=== PATIENT | male | born 1950 | race Caucasian/White ===

== ENCOUNTER 2017-01-25 10:39 | Day surgery (SDC) | payer MEDICARE, OTHER ==
[2017-01-25] VITALS (16 sets, daily range): BP systolic 119–243; BP diastolic 72–115; PULSE 63–84; RESP 10–18; TEMP 96.2–97.9; O2SAT 92–98; Ht 175.3 cm; Wt 98.2 kg
[~2017-01-25] VITALS: Ht 175.3 cm; Wt 98.2 kg
[~2017-01-25 10:39] MED LIST: AMLO5TAB2 PO; ASPI81TA2 PO; ATOR20TA59 PO; HYDR-4180 PO; LIDOCAINE 1% (10mg/ml) 2ml SDV INJ ONE; LISI1TAB11 PO; LR 1,000 ML IV SCH; MULT1TAB69 PO
[2017-01-25 11:14] LABS: BASOPHILS # (AUTO) 0.2 T/MM3 (0-0.2); BASOPHILS % (AUTO) 1.4 % (0-2); EOSINOPHILS # (AUTO) 0.7 T/MM3 (0-0.5); EOSINOPHILS % (AUTO) 5.7 % (0-4); HCT - HEMATOCRIT 47.7 % (41-53); HGB - HEMOGLOBIN 16.2 GM/DL (13.5-17.5); IMMATURE GRANULOCYTE # (AUTO) 0.03 T/MM3 (0.00-0.03); IMMATURE GRANULOCYTE % (AUTO) 0.3 % (0.0-0.5); LYMPHOCYTES # (AUTO) 3.5 T/MM3 (1-4.8); LYMPHOCYTES % (AUTO) 30.7 % (23-45); MEAN CORPUSCULAR HGB 32.3 UUG (26-34); MEAN CORPUSCULAR VOLUME 95.2 UM3 (80-100); MONOCYTES # (AUTO) 0.6 T/MM3 (0-0.8); MONOCYTES % (AUTO) 5.5 % (0-9.0); NEUTROPHILS #(AUTO)-ABSOLUTE 6.5 T/MM3 (1.8-7.7); NEUTROPHILS % (AUTO) 56.4 % (33-66); RED BLOOD COUNT 5.01 M/MM3 (4.50-5.90); WBC - WHITE BLOOD COUNT 11.5 T/MM3 (4.5-11.0)
[2017-01-25] MEDS ORDERED: METF10002 PO (11:16)
[2017-01-25] MEDS ORDERED: CITA20TA9 PO (11:17)
[2017-01-25] MEDS ORDERED: LOSA100T44 PO (11:18)
[2017-01-25] MEDS ORDERED: CARV6.252 PO (11:20)
[2017-01-25 11:35] LABS: ANION GAP 15 MEQ/L (5-15); BUN/CREATININE RATIO 17 RATIO (6-26); CALCIUM 9.7 MG/DL (8.4-10.2); CHLORIDE 103 MEQ/L (98-107); CO2 - CARBON DIOXIDE 26 MEQ/L (22-30); CREATININE 0.9 MG/DL (0.8-1.5); GLOMERULAR FILTRATION RATE 85; GLUCOSE 115 MG/DL (75-110); POTASSIUM 4.1 MEQ/L (3.6-5); SODIUM 144 MEQ/L (134-144)
--- NOTE | 2017-01-25 11:44 | ANESPREOP ---
Anesthesia Record Date and Time DATE: 01/25/17 TIME: 11:42 Pre-Op Diagnosis BCC on chest Proposed Surgical Procedure EXCISION OF INVASIVE BASAL CELL SKIN CARCINOMA AT ANTERIOR CHEST WITH STSG NPO since: Midnight Allergies: Coded Allergies: No Known Allergies (Unverified , 01/24/17) Ht/Wt/BMI Height: 5 ' 9.00 " Weight: 98.200 kg BMI: 32.0 kg/m2 Vital Signs Date Time Temp Pulse Resp B/P Pulse Ox O2 Delivery O2 Flow Rate FiO2 01/25/17 11:28 16 01/25/17 10:52 97.6 79 243/115 95 Room Air Medications Inpatient Medications Current Medications Medications (Trade) Dose Ordered Sig/Babs Start Time Stop Time Status Last Admin Dose Admin Lactated Ringer's (Lactated Ringers) 1,000 ml @ 50 mls/hr Q20H 01/25/17 07:00 Amlodipine Besylate (Amlodipine Besylate) 5 Mg Tablet, 5 MG PO HS, (Reported) Last Taken: on 01/24/172099 Aspirin (Aspirin) 81 Mg Tab.chew, 81 MG PO DAILY, (Reported) Last Taken: on 01/24/17 0800 Atorvastatin Calcium (Atorvastatin Calcium) 20 Mg Tablet, 1 TAB PO DAILY, (Reported) Last Taken: on 01/24/17 0800 Carvedilol (Carvedilol) 6.25 Mg Tablet, 2 TAB PO BIDWM, (Reported) BEST WITH FOOD. Last Taken: on 01/24/17 2100 Citalopram Hydrobromide (Citalopram HBr) 20 Mg Tablet, 1 TAB PO DAILY, (Reported) Last Taken: on 01/24/17 0800 Losartan Potassium (Losartan Potassium) 100 Mg Tablet, 100 MG PO DAILY, (Reported) Last Taken: on 01/24/17 0800 Metformin HCl (Metformin HCl) 1,000 Mg Tablet, 1 TAB PO BIDWM, (Reported) Take one tablet, by mouth, twice daily with meals Last Taken: on 01/24/17 1900 Multivitamin (Multivitamins) 1 Each Tablet, 1 TAB PO DAILY, (Reported) Last Taken: on 01/24/17 0800 Discontinued Medications Hydralazine HCl (Hydralazine HCl) 25 Mg Tablet, 1 TAB PO Q6H PRN for INCREASED BLOOD PRESSURE BEST TAKEN WITH MEALS. Take if Higher number is above 170 Discontinued Reason: Medication Stopped Lisinopril/Hydrochlorothiazide (Lisinopril-Hctz 20-12.5 mg Tab) 1 Each Tablet, 1 TAB PO DAILY, (Reported) Last Taken: on Unknown Date & Time Currently on Beta Mickey: Yes Beta Mickey Last Taken: 01/24/17 will dose in the OR Medical/Surgical History Anesthesia PMH: Reports: *Diabetes (TAKES METFORMIN), *Hypertension (TAKES MEDS ), CVA/Stroke/TIA (PT REPORTS), Denies: Anesthesia Reactions (NO AIRWAY ISSUES) , Cancer (SKIN CANCER), Glaucoma, Malignant Hyperthermia, Sleep Apnea Smoking Status: Current every day smoker Has pt. smoked today?: Yes # of Packs per Day: 1 # of Years: 50 Use Chewing Tobacco?: No Second Hand Exposure: No Substance Use Type: does not use Alcohol Intake: daily Last Drink: hours (ago) (48) Past Surgical History Orthopedic Surgeries: Yes - ARM ,LEG, COLLAR BONE Abdominal Surgeries: Genitourinary Surgeries: Cardiac Surgeries: Endocrine Surgeries: Reproductive Surgeries: Neurological Surgeries: Ear Surgeries: Nose Surgeries: Throat Surgeries: Yes - TONSILS Other Surgeries: Yes - ARM ,LEG, COLLAR BONE Anesthesia Adverse Reactions: FOUND none Family Hx of Anesthesia Advers: none Hx of Motion Sickness: No Pertinent Findings Laboratory Tests 01/25/17 11:06 EKG Rhythm: Sinus Rhythm Physical Exam Respiratory: Lungs clear Cardiovascular: FOUND Regular rate, rhythm Airway Assessment Mallampati Score: II TMD: 3 Fingerbreadths Neck Extension: Fair Teeth: Poor Dentation Overall Assessment: May Be Diff Mask Vent. (Full roberts) ASA: 3 Plan Anesthesia Plan: TIVA, LMA Discussion Discussed risks/options/alternatives of anesthesia and questions answered. Patient consents. Nursing pain assessment noted. Attestation Statement Prior to the delivery of any anesthetic medication, I examined the patient, developed the plan, obtained the patient's consent and discussed the risk and benefits of the procedure with the patient/guardian. JARED BENAVIDEZ SHAKER REPAIRER Jan 25, 2017 11:44
[2017-01-25] MEDS ORDERED: ALFENTANIL 500mcg/ml - 2ml INJECTION ONE (11:55)
[2017-01-25] MEDS ORDERED: PROPOFOL 500mg 50 ML IV ONE ×3 (12:04→13:55)
[2017-01-25] MEDS ORDERED: BUPIVACAINE 0.25% (2.5mg/ml) INJ 30ml SDV ONE (12:50)
[2017-01-25] MEDS ORDERED: EPHEDRINE SULFATE 50mg/ml INJECTION ONE (13:24)
[2017-01-25] MEDS ORDERED: KETAMINE 500mg/10ml INJECTION ONE (13:51)
[2017-01-25] MEDS ORDERED: FENTANYL 100mcg/2ml INJECTION ONE (14:26)
[2017-01-25] MEDS ORDERED: METOPROLOL 5mg/5ml INJECTION IV ONE (14:32)
--- NOTE | 2017-01-25 14:55 | GSPOSTPROC ---
Immediate Operative Note DATE: 01/25/17 TIME: 14:53 Postop Diagnosis: Invasive basal cell skin carcinoma at anterior chest Surgical Procedure: Other (Excision of basal cell skin carcinoma) Surgeon: Ismael ASA: 3 CHARLA WELCH MD Jan 25, 2017 14:55
[2017-01-25] MEDS ORDERED: ONDANSETRON 4mg/2ml INJECTION IV PRN (15:00)
[2017-01-25] MEDS ORDERED: PROMETHAZINE 25 MG INJECTION IV PRN (15:00)
[2017-01-25] MEDS ORDERED: MORPHINE 10mg/ml vl INJECTION IV PRN (15:00)
[2017-01-25] MEDS ORDERED: IBUPROFEN 200 MG TABLET PO PRN (15:00)
[2017-01-25] MEDS ORDERED: ACETAMINOPHEN 500 MG TABLET PO PRN (15:00)
[2017-01-25] MEDS ORDERED: OXYCODONE I.R. 5 MG TABLET PO PRN (15:00)
--- NOTE | 2017-01-25 15:15 | ANESPO ---
Post-Op Note Date 01/25/17 Time: 15:15 Status Pt Participated in Evaluation: Pt participated in person Vital Signs Date Time Temp Pulse Resp B/P Pulse Ox O2 Delivery O2 Flow Rate FiO2 01/25/17 11:28 16 01/25/17 10:52 97.6 79 243/115 95 Room Air Respiratory Function: Airway patent Cardiovascular Function: Regular pulse Telemetry Pattern: SR Mental Status: Alert/oriented Pain Level Intensity: 0 Hydration: IV infusing Complications during Recovery None apparent Follow-Up Instructions Instructions Per Surgeon JARED BENAVIDEZ CRNA Jan 25, 2017 15:15
--- NOTE | 2017-01-26 16:13 | OPNOTEF ---
DATE OF OPERATION 01/25/17 PREOPERATIVE DIAGNOSES 1. Large multinodular basal cell skin carcinoma at anterior chest. 2. Suspicious skin lesion overlying medial end of right clavicle. POSTOPERATIVE DIAGNOSES 1. Large multinodular basal cell skin carcinoma at anterior chest. 2. Suspicious skin lesion overlying medial end of right clavicle. OPERATION Excision of large multinodular basal cell skin carcinoma at anterior chest and excision of suspicious skin lesion overlying medial end of right clavicle. SURGEON Dr. Young Guevara ANESTHESIA TIVA ASA Class III. FINDINGS This patient did have a 7.8 cm x 3.5 cm area of multiple nodular skin lesions at the midline anterior chest just inferior to the suprasternal notch. One of these skin lesions was biopsied by Dr. Zaragoza on 01/03/17 and the pathology report on this biopsy did show invasive basal cell skin carcinoma. All the other multiple nodular skin lesion at this area looked like the one which was biopsied and these were all thought to probably be part of one large multinodular basal cell skin carcinoma lesion. The patient did also have a 2 cm x 2.5 cm red suspicious appearing skin lesion overlying the medial end of the right clavicle. This lesion was thought to have a suspicious appearance. The 7.8 cm x 3.5 cm multinodular basal cell skin carcinoma was excised along with a margin of normal-appearing skin. This specimen was submitted for frozen section examination by the pathologist. The pathologist did return a verbal frozen section examination report on this specimen indicating that all resection margins appeared to be free of tumor involvement. The 2 cm x 2.5 cm suspicious skin lesion overlying the medial end of the right clavicle was excised and submitted as a specimen for frozen section examination by the pathologist. The pathologist did return a verbal frozen section examination report on the specimen indicating that this is some type of benign skin lesion. No carcinoma was found at the skin lesion overlying the medial end of the right clavicle.. DESCRIPTION OF OPERATION The patient was placed in supine position on the operating table. The patient was premedicated with intravenous sedation medication administered by the nurse observation assistant. The patient continued to receive this intravenous sedation medication throughout the remainder of the operation. The anterior chest was shaved. The anterior chest of this patient and also the skin overlying the medial end of the right clavicle were all prepped and draped in routine sterile fashion. A split- thickness skin graft donor site at the anterior surface of the right thigh was also prepped and draped in routine sterile fashion at the same time. Bupivacaine 0.25% without epinephrine was infiltrated into skin and subcutaneous tissue at the 7.8 cm x 3.5 cm basal cell skin carcinoma at the anterior chest located just inferior to the suprasternal notch at the midline at the anterior chest. Bupivacaine was also infiltrated into skin and subcutaneous tissue at the suspicious skin lesion at the medial end of the right clavicle. The 7.8 cm x 3.5 cm skin lesion was excised along with a 3-mm margin of normal-appearing skin on all sides of the skin lesion. This specimen of skin and subcutaneous tissue was excised with scalpel and submitted for study by the pathologist. The skin lesion was pinned to a cloth drape with some needles. Anterior, inferior, right and left margins were marked on the cloth drape around specimen to orient the specimen for study by the pathologist. The skin lesion was then submitted to the pathologist for frozen section examination. Hemostasis was achieved at the excision site by coagulating bleeding points with the monopolar electrosurgery device with fine needle tip electrode. The 2 cm x 2.5 cm suspicious skin lesion overlying the medial end of the right clavicle was also excised the same time along with a 2-mm margin of normal-appearing skin on all sides. A piece of skin and subcutaneous tissue containing this skin lesion along with a 2-mm margin of normal-appearing skin was excised and submitted as a specimen for study by the pathologist. This specimen was also pinned to a cloth drape with some needles. Superior, inferior, right and left margins were marked on the cloth drape around the specimen for study by the pathologist. This specimen of skin containing the suspicious skin lesion over the medial end of the right clavicle was then submitted for frozen section examination by the pathologist. Hemostasis was achieved at this excision site by coagulating bleeding points with the monopolar electrosurgery device with fine needle tip electrode. It was initially thought that this large excision site where the 7.8 cm x 3.5 cm skin lesion was excised would need to be closed with a split-thickness skin graft. It did look at the time of operation, however, that perhaps this could be closed primarily. The skin and subcutaneous tissue margins on the inferior margin of this excision site were undermined and this did allow some skin at the anterior chest to be mobilized superiorly so that this wound could be closed without tension. A verbal frozen section examination report was then returned from the pathologist on the two specimens submitted with results as described above. Bupivacaine was infiltrated into a bridge of tissue between the two excision site wounds. This bridge of skin and subcutaneous tissue the two excision site wounds from one another was excised at this time. This did convert the two separate excision sites into one large transversely oriented excision site at the anterior chest extending up over the medial end of the right clavicle. Bupivacaine was infiltrated into the skin and subcutaneous tissue at each end of this one large transversely oriented open wound. Some additional tissue at right and left ends of the wound were then excised to convert the wound into a wound which had a more elliptical shape. Additional undermining was performed beneath the superior and inferior margins of this large open wound with the monopolar electrosurgery device with fine needle tip electrode. This did allow the superior skin margin at the wound to be approximated to the inferior skin margin at the wound without excessive tension and this did allow the wound to be closed primarily. A 19-Frisian round Sam- Darnell channel drain was placed in the subcutaneous space at this open wound beneath the inferior margin of the wound where quite a bit of undermining had been performed. This drain was brought out through a separate opening at the skin inferior to the left end of the wound. The drain was secured to the skin with 2-0 Prolene suture. The drain was placed at the subcutaneous tissue level beneath the inferior margin of the wound. Subcutaneous tissue of the superior margin of the wound was approximated to subcutaneous tissue at the inferior margin of the wound to begin to close the wound with a series of simple interrupted stitches using 3-0 Vicryl suture. The skin margin at the inferior side of the wound was then approximated to the skin margin at the superior side of the wound along the entire length of the wound with a series of a interrupted subcuticular stitches using 3-0 Vicryl suture. Skin margins of the superior and inferior sides of the wound were then approximated together even more closely throughout the entire length of wound with skin eilseo. This did close the wound. Sterile dressings were applied to the wound. The patient did have bupivacaine infiltrated into tissue throughout the procedure as needed to maintain patient comfort. The patient continued to receive intravenous sedation medication administered by the nurse observation assistant throughout the procedure as needed to maintain patient comfort. The patient did appear to tolerate the operation well. The sponge, needle and instrument counts were all correct at the end of the operation. The patient was transferred from the operating room to the recovery room in satisfactory condition. FABIANA
[2017-03-11] MEDS ORDERED: CARV12.52 PO (10:06)
[2017-03-11] MEDS ORDERED: AMLO10TA2 PO (10:09)
[2017-03-11] MEDS ORDERED: METF500T4 PO (10:09)
== END 2017-01-25 17:09 | disposition home or self-care (01) ==
LOC: SCU 10:39
PROVIDERS: ATTEND Surgery
DX: C44.519 Basal cell carcinoma of skin of other part of trunk (principal); L57.0 Actinic keratosis; E11.9 Type 2 diabetes mellitus without complications; I10 Essential (primary) hypertension; F41.9 Anxiety disorder, unspecified; E78.5 Hyperlipidemia, unspecified; F17.210 Nicotine dependence, cigarettes, uncomplicated; Z79.84 Long term (current) use of oral hypoglycemic drugs; Z79.82 Long term (current) use of aspirin; Z79.899 Other long term (current) drug therapy
CPT/HCPCS: 11406; 11606; 13101; 13102; 36415; 80048; 82948; 85025; 88305; 88331; 88332; J2405; J3010

== ENCOUNTER 2017-03-12 05:49 | Day surgery (SDC) | payer MEDICARE, OTHER ==
[~2017-03-12] VITALS: Ht 177.8 cm; Wt 93.5 kg
[~2017-03-12 05:49] MED LIST changes: +AMLO10TA2 PO; -AMLO5TAB2 PO; +CARV12.52 PO; +CITA20TA9 PO; -HYDR-4180 PO; -LIDOCAINE 1% (10mg/ml) 2ml SDV INJ ONE; -LISI1TAB11 PO; +LOSA100T44 PO; -LR 1,000 ML IV SCH; +METF500T4 PO
[2017-03-12 05:51] VITALS: BP 191/95; PULSE 74; RESP 18; TEMP 96.9; O2SAT 96; Ht 177.8 cm; Wt 93.5 kg
--- OUTSIDE RECORDS SUMMARY | 2017-03-12 05:54 | XMS REPORT | Continuity of Care Document ---
Author Author [facility] Organization [facility] Address Unknown Phone Unavailable Support Name Relationship Address Phone CHARLA WELCH MD Caregiver [address] [place] [address] [place] [address] Unavailable Noris GUTIERREZ MD Caregiver [phone] [address] Unavailable KRISTINA VIERA Next Of Kin [address] [place] [id number] Insurance Providers Guarantor Gilberto Willams Address [address] [place] [address] Email DENIED 17 Payer [employer]ign[employer] Medicare Supplement Policy Number [id number] Subscriber's Name Gilberto Willams Relationship 18 Self Group Number [id number] Payer Medicare Policy Number [id number] Subscriber's Name Gilberto Willams Relationship 18 Self Advance Directives Directive Response Recorded Date/Time Ordered Resuscitation Status Full Code 01/24/17 2:10pm Resuscitation Documents on File No 01/25/17 11:05am DPOA for Healthcare Only No 01/25/17 11:05am Living Will No 01/25/17 11:05am Problems Active Problems Medical Problem Onset Date Status Hypertensive urgency Unknown Acute Medications Current Home Medications Medication Dose Units Route Directions Days Qty Instructions Start Date Amlodipine Besylate 5 Mg Tablet 5 Mg Oral Bedtime 11/22/15 Aspirin 81 Mg Tab.chew 81 Mg Oral Daily 11/10/15 Atorvastatin Calcium 20 Mg Tablet 1 Tab Oral Daily 30 01/24/17 Carvedilol 6.25 Mg Tablet 2 Tab Oral Twice Daily With Meals BEST WITH FOOD. 01/25/17 Citalopram Hydrobromide (Citalopram Hbr) 20 Mg Tablet 1 Tab Oral Daily 01/25/17 Losartan Potassium 100 Mg Tablet 100 Mg Oral Daily 01/25/17 Metformin Hcl 1,000 Mg Tablet 1 Tab Oral Twice Daily With Meals Take one tablet, by mouth, twice daily with meals 01/25/17 Multivitamin (Multivitamins) 1 Each Tablet 1 Tab Oral Daily 11/10 Past Home Medications Medication Directions Ordered Status Hydralazine Hcl 25 Mg Tablet, 1 Tab Oral Every 6 Hours as needed for Increased Blood Pressure 11/22/15 Discontinued Lisinopril/Hydrochlorothiazide (Lisinopril-Hctz 20-12.5 Mg Tab) 1 Each Tablet, 1 Tab Oral Daily 11/22/15 Discontinued Social History Social History Problem Response Recorded Date/Time Onset Date Status Reason for Hospitalization EXCISION OF BASAL CELL CARCINOMA 01/25/2017 4: 16pm Not Applicable Not Applicable Chewing Tobacco Status No 01/25/2017 11:25am Not Applicable Not Applicable Hx Substance Use No 01/25/2017 11:25am Not Applicable Not Applicable Hx Alcohol Use Yes 01/25/2017 11:25am Not Applicable Not Applicable Has the pt used tobacco in the last 12 months No 01/25/2017 11:25am Not Applicable Not Applicable Tobacco Usage smoke 11/10/2015 1:37pm Not Applicable Not Applicable Query Response Start Date Stop Date Smoking Status Current every day smoker Hospital Discharge Instructions Instructions: Care Instructions: I was in the hospital because (patient own words): REMOVE SKIN CANCER FROM NECK Discharge Diet: Resume previous diet. Discharge Activity: Restricted. Follow Up Appointments: Call [facility] at ext [phone] and make appointment for patient to see Dr Welch for postop visit next Saturday or . Pending Lab / Results: No Pending Lab Expected Signs/Symptoms: Usual incisional discomfort Notify Physician If: Any concerns about appearance of wound. During Business Hours:: Please call the physician's office at [phone] and choose option 2. After Business Hours:: Please call [phone] and have the diecast machine operator page Dr. Welch. Pain Management/Treatment: Take analgesics as prescribed. Wound/Incision Care: Remove dressings as instructed by physician. Condition at time of discharge: Good Plan of Care Discharge Date 01/25/17 5:09pm Instructions/Education Provided [facility] Surgical Services Sam-Darnell Drain Care (DC) Excision of Skin Lesion (DC) Prescriptions See Medication Section Functional Status Query Response Date Recorded Ability to complete ADL's impeded by No change January 25, 2017 11:05am Allergies, Adverse Reactions, Alerts No known allergies. Immunizations Query Response on File Recorded Date/Time Hx Influenza Vaccination No 01/25/17 11:25am Hx Pneumococcal Vaccination No 01/25/17 11:25am Hx Influenza Vaccination No 01/25/17 11:25am Influenza Vaccine Hx NO 11/22/15 2:01pm Vital Signs Acute Vital Signs Vital Response Date/Time Temperature (Fahrenheit) 96.2 deg F (96.8 - 99.1) 01/25/2017 5:08pm Temperature (Calculated Celsius) 35.61854 degrees C (36.0 - 37.3) 01/25/2017 5:08pm Temperature Source Temporal 01/25/2017 5:08pm Pulse Rate (adult) 70 bpm (60 - 100) 01/25/2017 5:08pm Respiratory Rate 16 breaths/min (10 - 20) 01/25/2017 5:08pm O2 Sat by Pulse Oximetry 94 % (90 - 100) 01/25/2017 5:08pm Oxygen Delivery Method Room Air 01/25/2017 5:08pm Oxygen Flow Rate 2.00 L/min 01/25/2017 3:10pm Blood Pressure 193/103 mm Hg 01/25/2017 5:08pm Blood Pressure Source Automatic Cuff 01/25/2017 5:08pm Height (Feet) 5 feet 01/25/2017 11:04am Height (Inches) 9.00 inches 01/25/2017 11:04am Weight (Kilograms) 98.200 kg 01/25/2017 11:04am Body Mass Index (BMI) 32.0 01/25/2017 11:04am Results Laboratory Results Test Name Result Units Flags Reference Collection Date/Time Result Date/ Time Comments White Blood Count 11.5 T/MM3 H 4.5-11.0 01/25/2017 11:06am 01/25/2017 11 :14am Red Blood Count 5.01 M/MM3 4.50-5.90 01/25/2017 11:06am 01/25/2017 11: 14am Hemoglobin 16.2 GM/DL 13.5-17.5 01/25/2017 11:06am 01/25/2017 11:14am Hematocrit 47.7 % 41-53 01/25/2017 11:06am 01/25/2017 11:14am Mean Corpuscular Volume 95.2 UM3 80-100 01/25/2017 11:06am 01/25/2017 11:14am Mean Corpuscular Hemoglobin 32.3 UUG 26-34 01/25/2017 11:062016 11:14am Mean Corpuscular Hemoglobin Concent 34.0 GM/DL 31-37 01/25/2017 11:01/25/2017 11:14am RDW Standard Deviation 45.0 FL 36.9-50.2 01/25/2017 11:01/25/2017 11:14am Platelet Count 237 T/MM3 130-400 01/25/2017 11:01/25/2017 11:14am Mean Platelet Volume 10.0 UM3 9.4-12.4 01/25/2017 11:06am 01/25/2017 11 :14am Neutrophils (%) (Auto) 56.4 % 33-66 01/25/2017 11:am 01/25/2017 11: 14am Lymphocytes (%) (Auto) 30.7 % 23-45 01/25/2017 11:06am 01/25/2017 11: 14am Monocytes (%) (Auto) 5.5 % 0-9.0 01/25/2017 11:am 01/25/2017 11:14am Eosinophils (%) (Auto) 5.7 % H 0-4 01/25/2017 11:am 01/25/2017 11: 14am Basophils (%) (Auto) 1.4 % 0-2 01/25/2017 11:01/25/2017 11:14am Immature Granulocyte % (Auto) 0.3 % 0.0-0.5 01/25/2017 11:am 2016 11:14am Absolute Neutrophils (auto) 6.5 T/MM3 1.8-7.7 01/25/2017 11:am 2016 11:14am Absolute Lymphocytes (auto) 3.5 T/MM3 1-4.8 01/25/2017 11:am 2016 11:14am Absolute Monocytes (auto) 0.6 T/MM3 0-0.8 01/25/2017 11:am 2016 11:14am Absolute Eosinophils (auto) 0.7 T/MM3 H 0-0.5 01/25/2017 11:06am 2016 11:14am Absolute Basophils (auto) 0.2 T/MM3 0-0.2 01/25/2017 11:062016 11:14am Absolute Immature Granulocyte (auto 0.03 T/MM3 0.00-0.03 01/25/2017 11: 0601/25/2017 11:14am Icterus Index < 2 0-7 01/25/2017 11:0601/25/2017 11:35am Chemistry Specimen Hemolysis < 15 0-25 01/25/2017 11:0601/25/2017 11:35am 0-25: Specimen Exhibited No Hemolysis. Turbidity < 20 0-20 01/25/2017 11:0601/25/2017 11:35am Sodium Level 144 MEQ/L 134-144 01/25/2017 11:0601/25/2017 11:35am Potassium Level 4.1 MEQ/L 3.6-5 01/25/2017 11:0601/25/2017 11:35am Chloride Level 103 MEQ/L 98-107 01/25/2017 11:06am 01/25/2017 11:35am Carbon Dioxide Level 26 MEQ/L 22-30 01/25/2017 11:0601/25/2017 11: 35am Anion Gap 15 MEQ/L 5-15 01/25/2017 11:06am 01/25/2017 11:35am Blood Urea Nitrogen 15.0 MG/DL 9-20 01/25/2017 11:0601/25/2017 11: 35am Creatinine 0.9 MG/DL 0.8-1.5 01/25/2017 11:0601/25/2017 11:35am BUN/Creatinine Ratio 17 RATIO 6-26 01/25/2017 11:0601/25/2017 11: 35am Glomerular Filtration Rate Calc 85 01/25/2017 11:0601/25/2017 11 :35am Glucose Level 115 MG/DL H 75-110 01/25/2017 11:0601/25/2017 11:35am Calculated Osmolality 279 MOSM/KG 261-280 01/25/2017 11:062016 11:35am Calcium Level 9.7 MG/DL 8.4-10.2 01/25/2017 11:06am 01/25/2017 11:35am Glucometer 93 mg/dL 75-110 01/25/2017 3:49pm 01/25/2017 4:47pm Procedures Procedure Status Date Provider(s) Excision, lesion Completed 01/25/17 CHARLA WELCH MD Encounters Encounter Location Arrival/Admit Date Discharge/Depart Date Attending Provider Departed [facility] 01/25/17 10:39am 01/25/17 5 :09pm CHARLA WELCH MD
[2017-03-12 06:22] VITALS: BP 144/82
[2017-03-12] MEDS ORDERED: LR 1,000 ML IV SCH (07:00)
[2017-03-12] MEDS ORDERED: LIDOCAINE 1% (10mg/ml) 2ml SDV INJ ONE (07:00)
[2017-03-12] MEDS ORDERED: PROPOFOL 500mg 50 ML IV ONE (07:29)
--- NOTE | 2017-03-12 07:49 | ANESPREOP ---
Anesthesia Record Date and Time DATE: 03/12/17 TIME: 07:10 Proposed Surgical Procedure colonoscopy Allergies: Coded Allergies: No Known Allergies (Unverified , 03/12/17) Ht/Wt/BMI Height: 5 ' 10.00 " Weight: 93.500 kg BMI: 29.6 kg/m2 Vital Signs Date Time Temp Pulse Resp B/P Pulse Ox O2 Delivery O2 Flow Rate FiO2 03/12/17 06:22 144/82 03/12/17 05:51 96.9 74 18 96 Room Air Medications Inpatient Medications Current Medications Medications (Trade) Dose Ordered Sig/Babs Start Time Stop Time Status Last Admin Dose Admin Lactated Ringer's (Lactated Ringers) 1,000 ml @ 50 mls/hr Q20H 03/12/17 07:00 03/12/17 06:20 50 MLS/HR Amlodipine Besylate (Amlodipine Besylate) 10 Mg Tablet, 1 TAB PO DAILY, ( Reported) Last Taken: on 03/11/172099 Aspirin (Aspirin) 81 Mg Tab.chew, 81 MG PO DAILY, (Reported) Last Taken: on 03/09/17 Atorvastatin Calcium (Atorvastatin Calcium) 20 Mg Tablet, 1 TAB PO DAILY, (Reported) Last Taken: on 03/11/172099 Carvedilol (Carvedilol) 12.5 Mg Tablet, 1 TAB PO BIDWM, (Reported) BEST WITH FOOD. Last Taken: on 03/12/17444 Citalopram Hydrobromide (Citalopram HBr) 20 Mg Tablet, 1 TAB PO DAILY, (Reported) Last Taken: on 03/11/172099 Losartan Potassium (Losartan Potassium) 100 Mg Tablet, 100 MG PO DAILY, (Reported) Last Taken: on 03/11/17 2100 Metformin HCl (Metformin HCl) 500 Mg Tablet, 2 TAB PO BIDWM, (Reported) Last Taken: on 03/11/17 0800 Multivitamin (Multivitamins) 1 Each Tablet, 1 TAB PO DAILY, (Reported) Last Taken: on 03/11/17 0800 Currently on Beta Mickey: Yes Beta Mickey Last Taken: CARVEDILOL @ 0445 03/12/17 Medical/Surgical History Anesthesia PMH: Reports: *Diabetes (TAKES METFORMIN), *Hypertension (TAKES MEDS ), Anesthesia Reactions (NO AIRWAY ISSUES), COPD, CVA/Stroke/TIA, Cancer (SKIN CANCER), Denies: Glaucoma, Malignant Hyperthermia, Sleep Apnea Smoking Status: Current every day smoker Has pt. smoked today?: Yes # of Packs per Day: 1 # of Years: 50 Use Chewing Tobacco?: No Second Hand Exposure: No Substance Use Type: does not use Alcohol Intake: daily Last Drink: hours (ago) Past Surgical History Orthopedic Surgeries: Yes - ARM ,LEG, COLLAR BONE Abdominal Surgeries: Genitourinary Surgeries: Cardiac Surgeries: Endocrine Surgeries: Reproductive Surgeries: Neurological Surgeries: Ear Surgeries: Nose Surgeries: Throat Surgeries: Yes - TONSILS Other Surgeries: Yes - ARM ,LEG, COLLAR BONE Anesthesia Adverse Reactions: FOUND none Family Hx of Anesthesia Advers: none Hx of Motion Sickness: No Pertinent Findings EKG Rhythm: Sinus Rhythm Physical Exam Respiratory: Lungs clear Cardiovascular: FOUND Regular rate, rhythm Airway Assessment Mallampati Score: II TMD: 3 Fingerbreadths Neck Extension: Fair Overall Assessment: May Be Diff Mask Vent. (full roberts), May Be Diff Intubation Plan Anesthesia Plan: TIVA Discussion Discussed risks/options/alternatives of anesthesia and questions answered. Patient consents. Nursing pain assessment noted. Attestation Statement Prior to the delivery of any anesthetic medication, I examined the patient, developed the plan, obtained the patient's consent and discussed the risk and benefits of the procedure with the patient/guardian. RONA DELANEY CRNA March 12, 2017 07:49
[2017-03-12 07:52] VITALS: BP 135/72; PULSE 61; RESP 16; TEMP 97.6; O2SAT 95
--- NOTE | 2017-03-12 07:52 | GSPOSTPROC ---
Immediate Operative Note DATE: 03/12/17 TIME: 07:51 Postop Diagnosis: Desire for screening Surgical Procedure: C-scope Surgeon: CHARLA Carolina MD March 12, 2017 07:52
[2017-03-12 08:00] VITALS: BP 131/83; PULSE 66; RESP 15; O2SAT 96
[2017-03-12 08:10] VITALS: BP 147/91; PULSE 64; RESP 16; O2SAT 95
[2017-03-12 08:20] VITALS: BP 144/88; PULSE 67; RESP 15; O2SAT 96
--- NOTE | 2017-03-12 08:32 | ANESPO ---
Post-Op Note Date 03/12/17 Time: 08:32 Status Pt Participated in Evaluation: Pt participated in person Vital Signs Date Time Temp Pulse Resp B/P Pulse Ox O2 Delivery O2 Flow Rate FiO2 03/12/17 08:20 67 15 144/88 96 Room Air 03/12/17 07:52 97.6 Respiratory Function: Airway patent Cardiovascular Function: Regular pulse Mental Status: Alert/oriented Pain Level Intensity: 0 Hydration: Taking po fluids Complications during Recovery None apparent Follow-Up Instructions Instructions Per Surgeon RONA DELANEY CRNA March 12, 2017 08:32
--- NOTE | 2017-03-12 12:51 | OPNOTEF ---
DATE OF OPERATION 03/12/2017 PREOPERATIVE DIAGNOSES 1. Chronic constipation. 2. Desire for screening for colon and rectal carcinoma. POSTOPERATIVE DIAGNOSES 1. Chronic constipation. 2. Desire for screening for colon and rectal carcinoma. 3. Colonic diverticulosis. 4. Internal and external hemorrhoids. OPERATION Total colonoscopy. SURGEON Dr. Ismael XIE ASA CLASS 3 FINDINGS There were no colon or rectal tumors. There were no colon or rectal polyps. There were no colonic angiodysplasia lesions. There was no melanosis coli. There was no inflammatory bowel disease. The patient does have some moderate left-sided colonic diverticulosis. The patient does have some internal and external hemorrhoids. DESCRIPTION OF OPERATION The patient was brought to the endoscopy room. The patient was placed on a cart in the endoscopy room. The patient was placed in left lateral recumbent position on the cart in the endoscopy room. The patient was premedicated with intravenous sedation medication administered by the nurse round up ring hand. The Olympus colonoscope was used. The colonoscope was introduced into the rectum. The colonoscope was advanced up through the rectum and colon all the way up to the cecum. The appendiceal orifice was visualized. The ileocecal valve was visualized. The colonoscope was then withdrawn out through the colon and rectum and removed from the patient. Digital rectal examination was performed. Findings throughout the procedure were as described above. The patient did continue to receive intravenous sedation medication administered by the nurse round up ring hand throughout the operation. The patient did tolerate the operation well. RECOMMENDATION Followup colonoscopy again in 10 years. MTDD
== END 2017-03-12 08:49 | disposition home or self-care (01) ==
LOC: SCU 05:49
PROVIDERS: ATTEND Surgery
DX: Z12.11 Encounter for screening for malignant neoplasm of colon (principal); K59.09 Other constipation; K57.30 Diverticulosis of large intestine without perforation or abscess without bleeding; K64.4 Residual hemorrhoidal skin tags; K64.8 Other hemorrhoids; E11.9 Type 2 diabetes mellitus without complications; I10 Essential (primary) hypertension; E78.5 Hyperlipidemia, unspecified; F17.210 Nicotine dependence, cigarettes, uncomplicated; F41.9 Anxiety disorder, unspecified; Z79.82 Long term (current) use of aspirin; Z79.84 Long term (current) use of oral hypoglycemic drugs; Z79.899 Other long term (current) drug therapy
CPT/HCPCS: 82948; G0121; J7120